=== PATIENT | female | born 1950 | race Caucasian/White ===

== ENCOUNTER 2018-12-27 14:07 | Inpatient (IN) ==
[2018-12-27] MEDS ORDERED: ASPIRIN PO ONE (14:39)
[2018-12-27] MEDS ORDERED: NITROGLYCERIN SL PRN (14:39)
[2018-12-27 14:57] LABS: BASO# 0.05 X1000 (0.0-0.2); BASO% 0.4 % (0.0-0.8); EOS# 0.08 X1000 (0.0-0.7); EOS% 0.6 % (0.0-10.0); HEMATOCRIT 43.4 % (37.0-47.0); HEMOGLOBIN 15.1 g/dL (12.0-16.0); IMM GRAN# 0.04 X1000 (0.0-0.04); IMM GRAN% 0.3 % (0.0-0.5); LYMPH% 26.8 % (20.5-51.1); MCH 31.7 PG (27-31); MCHC 34.8 g/dL (33-37); MCV 91.2 FL (81-99); MONO# 1.41 X1000 (0.11-0.59); MONO% 11.4 % (1.7-9.3); MPV 12.2 FL (7.4-10.4); NEUT# 7.44 X1000 (1.4-6.5); NEUT% 60.5 % (42.2-75.2); PLT 138 X1000 (130-400); RBC 4.76 XMIL (4.2-5.4); RDW 13.7 % (11.5-14.5); WBC 12.32 X1000 (4.8-10.8)
[2018-12-27 15:04] LABS: INR 0.89; PROTIME 12.8 Seconds (11.0-16.0)
[2018-12-27 15:05] LABS: PTT 28.5 Seconds (22.3-41.8)
--- NOTE | 2018-12-27 15:11 | PROVIDER DOCUMENTATION ---
HPI-Cardiac General - General Chief Complaint: Chest Pain Stated Complaint: CP ARM PAIN DR VIEYRA REF Time Seen by Provider: 12/27/18 14:21 Source: patient Allergies/Adverse Reactions: Patient Allergies Allergy/AdvReac Type Severity Reaction Status Date / Time No Known Allergies Allergy Verified 12/27/18 14:46 Home Medications: Home Medication List Medication Instructions Recorded Confirmed Last Taken Type AMLODIPINE/BENAZEpril [Lotrel 5/20 1 each PO DAILY 08/10/12 08/10/12 08/10/12 09:00 History mg] Aspirin 81 mg PO DAILY 08/10/12 08/10/12 08/10/12 09:00 History Citalopram [Celexa] 10 mg PO DAILY 08/10/12 08/10/12 08/10/12 09:00 History Clonazepam [Klonopin] 0.5 mg PO QHS 08/10/12 08/10/12 08/09/12 20:00 History Hydrocodone/APAP 5 mg/325 mg 1 each PO Q6-8H PRN PRN #15 tablet 08/10/12 Unknown Rx [Norc0-5] Ondansetron Odt [Zofran Odt] 4 mg PO Q6-8H PRN PRN #10 tablet 08/10/12 Unknown Rx Orphenadrine [Norflex] 100 mg PO BID #10 tablet 08/10/12 Unknown Rx PRAVAstatin [Pravachol] 40 mg PO QHS 08/10/12 08/10/12 08/09/12 20:00 History - History of Present Illness-Cardiac Nature of Presenting Problem: reports having substernal cp since yesterday after pushing her furnitures. pain is dull and has been constant now. radiated to both arms. took norco and muscle relaxant which felt easy but the pain persists, mild 4/10. no n/v/diaphoresis, weakness, lightheadedness or dizziness during the episode. has weakness all the time. denied fever chills, cough. dysuria, abd pain. 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 currently taking ASA. 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 Review of Systems - Adult - REVIEW OF SYSTEMS - ADULT Constitutional: reports: no symptoms reported Eyes: reports: no symptoms reported Ears, Nose, Mouth & Throat: reports: no symptoms reported Cardiovascular: reports: no symptoms reported Respiratory: reports: no symptoms reported Gastrointestinal: reports: no symptoms reported Genitourinary: reports: no symptoms reported Musculoskeletal: reports: no symptoms reported Integumentary: reports: no symptoms reported Neurological: reports: no symptoms reported Psychiatric: reports: no symptoms reported Endocrine: reports: no symptoms reported Hematologic/Lymphatic: reports: no symptoms reported Allergic/Immunologic: reports: no symptoms reported All Other Systems: Reviewed and Negative Past History - Adult - PAST MEDICAL HISTORY-ADULT Review of Records: reports: Old Records Reviewed, Nursing Assessment Review, Medications Reviewed, Social history reviewed & non-contributory. Major Childhood Illnesses: reports: denies history Cardiovascular: reports: CAD, HTN, hyperlipidemia Respiratory: reports: denies history Gastrointestinal: reports: denies history Obstetrical/Gynecological: reports: denies history Genitourinary: reports: denies history Musculoskeletal: reports: denies history Neurological: reports: denies history Endocrine/Immune: reports: denies history Other Conditions: reports: denies history - PRIOR SURGERIES/PROCEDURES Surgical/Procedure History: reports: cardiac stent (2016) - IMMUNIZATION STATUS Childhood Immunizations: See Nurse Assessment Flu Vaccine: See Nurse Assessment - FAMILY HISTORY Family History: CAD under 55yo - SOCIAL HISTORY Smoking: greater than 1 pack/day Provider spent 3-5 mins advising pt. on dangers of tobacco.: Discussed manners to quit use, and f/u contacts for add'l counseling. Substance Use: none/never Alcohol Use Frequency: occasionally Living Situation: family Physical Exam-General - PHYSICAL EXAM-ADULT Initial Vital Signs Reviewed: Yes - CONSTITUTIONAL General Appearance: appears well, alert, no apparent distress - EYES Eyes: PERRL/EOMI, pink conjunctivae - HEAD, EARS, NOSE, MOUTH & THROAT HENMT: normocephalic/atraumatic, moist mucous membranes, normal ENT inspection - NECK Neck: non-tender, full range of motion, supple - RESPIRATORY Respiratory: chest non-tender, lungs clear, normal breath sounds, no pleuratic chest pain - CARDIOVASCULAR Cardiovascular: normal peripheral pulses, regular rate, rhythm, no edema - GASTROINTESTINAL (ABDOMEN) Abdominal Exam: normal bowel sounds, non tender, soft, no organomegaly - MUSCULOSKELETAL Back Exam: normal inspection, no CVA tenderness, no vertebral tenderness Extremity: normal range of motion, non-tender, normal gait, normal inspection Peripheral Pulses: radial (R): 2+, radial (L): 2+ - SKIN Integumentary: normal color, normal turgor, warm/dry - NEUROLOGIC Neurologic: grossly normal, no motor/sensory deficits - PSYCHIATRIC Psych/Mental Status: normal mood/affect, normal thought content, normal thought process, oriented x 3 - HEART Score HEART Score: History: Moderately Suspicious HEART Score: ECG: Normal HEART Score: Age: > or = 65 Years HEART Score: Risk Factors for Atherosclerotic Disease: > or = 3 Risk Factors or History of Atherosclerotic Disease HEART Score: Troponin: 1-3x Normal Limit Total HEART Score:: 6 Progress - PLAN OF CARE/RESULTS Progress/Plan/Lab Results: Vital Signs - 8 hr 12/27/18 14:39 12/27/18 15:30 12/27/18 15:40 Pulse Rate 64 68 70 Respiratory Rate 16 17 20 Blood Pressure 140/72 O2 Sat by Pulse Oximetry 100 99 98 12/27/18 15:50 12/27/18 16:00 12/27/18 16:10 Pulse Rate 69 69 72 Respiratory Rate 20 24 17 Blood Pressure O2 Sat by Pulse Oximetry 98 97 97 12/27/18 16:20 12/27/18 16:30 12/27/18 16:40 Pulse Rate 75 73 67 Respiratory Rate 19 13 20 Blood Pressure O2 Sat by Pulse Oximetry 98 98 98 12/27/18 16:50 12/27/18 17:00 12/27/18 17:10 Pulse Rate 66 64 64 Respiratory Rate 19 21 17 Blood Pressure O2 Sat by Pulse Oximetry 98 98 99 12/27/18 17:20 12/27/18 17:22 12/27/18 17:30 Pulse Rate 64 63 63 Respiratory Rate 18 19 17 Blood Pressure 146/73 O2 Sat by Pulse Oximetry 98 98 98 12/27/18 17:32 12/27/18 17:40 12/27/18 17:50 Pulse Rate 64 65 61 Respiratory Rate 19 17 19 Blood Pressure 148/79 O2 Sat by Pulse Oximetry 97 99 97 12/27/18 18:00 Pulse Rate 71 Respiratory Rate 16 Blood Pressure O2 Sat by Pulse Oximetry 98 Laboratory Results - last 24 hr 12/27/18 12/27/18 12/27/18 14:47 14:47 14:47 WBC 12.32 H RBC 4.76 Hgb 15.1 Hct 43.4 MCV 91.2 MCH 31.7 H MCHC 34.8 RDW Std Deviation 13.7 Plt Count 138 MPV 12.2 H Immature Gran % (Auto) 0.3 Neut % (Auto) 60.5 Lymph % (Auto) 26.8 [place] % (Auto) 11.4 H Eos % (Auto) 0.6 Baso % (Auto) 0.4 Immature Gran # (Auto) 0.04 Neut # (Auto) 7.44 H Lymph # (Auto) 3.30 [place] # (Auto) 1.41 H Eos # (Auto) 0.08 Baso # (Auto) 0.05 PT INR PTT (Actin FS) Sodium 138 Potassium 3.8 Chloride 102 Carbon Dioxide 27 Anion Gap 9 BUN 7 L Creatinine 0.5 Estimated GFR/1.73 m2 > 60 BUN/Creatinine Ratio 14 Glucose 86 Calculated Osmolality 273 Calcium 9.3 Total Bilirubin 0.77 AST 23 ALT 12 Alkaline Phosphatase 192 H Creatine Kinase 98 Troponin T Dmv-P-Mfcefbjkmrz Pept 846 H Total Protein 7.6 Albumin 4.4 Globulin 3.2 Albumin/Globulin Ratio 1.4 12/27/18 12/27/18 12/27/18 14:47 14:47 17:00 WBC RBC Hgb Hct MCV MCH MCHC RDW Std Deviation Plt Count MPV Immature Gran % (Auto) Neut % (Auto) Lymph % (Auto) [place] % (Auto) Eos % (Auto) Baso % (Auto) Immature Gran # (Auto) Neut # (Auto) Lymph # (Auto) [place] # (Auto) Eos # (Auto) Baso # (Auto) PT 12.8 INR 0.89 PTT (Actin FS) 28.5 Sodium Potassium Chloride Carbon Dioxide Anion Gap BUN Creatinine Estimated GFR/1.73 m2 BUN/Creatinine Ratio Glucose Calculated Osmolality Calcium Total Bilirubin AST ALT Alkaline Phosphatase Creatine Kinase 91 Troponin T 0.095 H Dkg-O-Lgicvikhoeo Pept Total Protein Albumin Globulin Albumin/Globulin Ratio 12/27/18 17:00 WBC RBC Hgb Hct MCV MCH MCHC RDW Std Deviation Plt Count MPV Immature Gran % (Auto) Neut % (Auto) Lymph % (Auto) [place] % (Auto) Eos % (Auto) Baso % (Auto) Immature Gran # (Auto) Neut # (Auto) Lymph # (Auto) [place] # (Auto) Eos # (Auto) Baso # (Auto) PT INR PTT (Actin FS) Sodium Potassium Chloride Carbon Dioxide Anion Gap BUN Creatinine Estimated GFR/1.73 m2 BUN/Creatinine Ratio Glucose Calculated Osmolality Calcium Total Bilirubin AST ALT Alkaline Phosphatase Creatine Kinase Troponin T 0.103 H Rpg-A-Nvemlfqtkzy Pept Total Protein Albumin Globulin Albumin/Globulin Ratio Orders Category Date Time Status Admit - [facility] Routine AdmDCTranf 12/27/18 19:38 Active Apply Mechanical Device [QM] ORDERED Care 12/27/18 19:38 Active Cardiac Monitoring DIRECTED Care 12/27/18 14:39 Active DVT/PE Risk Assess/Protocol [QM] ORDERED Care 12/27/18 19:38 Active Notify MD if DIRECTED Care 12/27/18 19:38 Active Nursing- MD Consult Request ROUTINE Care 12/27/18 19:38 Active Oxygen Therapy- ED Nursing DIRECTED Care 12/27/18 14:39 Active Saline Loc DIRECTED Care 12/27/18 19:38 Active Saline Loc NOW Care 12/27/18 14:39 Active Vital Signs Order Q 4-HR ASSESS Care 12/27/18 19:38 Active Z-Document. for Tele Applied ORDERED Care 12/27/18 19:38 Active Physician/Provider Consults Routine Cons 12/27/18 19:38 Ordered Heart Healthy Diet Diet 12/27/18 17:38 Completed Heart Healthy Diet Diet 12/27/18 19:38 Active CHEST-2 VIEWS [RAD] Stat Exams 12/27/18 14:39 Completed BASIC METABOLIC PANEL [CHEM] Routine Lab 12/28/18 06:00 Ordered CBC WITH ELECTRONIC DIFF [HEME] Stat Lab 12/27/18 14:47 Completed CK PROFILE [SP CHEM] Q8H Lab 12/27/18 20:05 Completed CK PROFILE [SP CHEM] Q8H Lab 12/28/18 03:38 Ordered CK PROFILE [SP CHEM] Q8H Lab 12/28/18 11:38 Ordered CK PROFILE [SP CHEM] Stat Lab 12/27/18 14:47 Completed CK PROFILE [SP CHEM] Stat Lab 12/27/18 17:00 Completed COMPREHENSIVE METABOLIC PANEL [CHEM] Stat Lab 12/27/18 14:47 Completed LIPID PROFILE W/CALC LDL [LIPIDS] Routine Lab 12/28/18 06:00 Ordered MAGNESIUM [CHEM] Routine Lab 12/28/18 06:00 Ordered PRO B-NATRIURETIC PEPTIDE Stat Lab 12/27/18 14:47 Completed PROTIME WITH INR [COAG] Stat Lab 12/27/18 14:47 Completed PTT [COAG] Stat Lab 12/27/18 14:47 Completed TROPONIN T Q8H Lab 12/27/18 20:05 Completed TROPONIN T Q8H Lab 12/28/18 03:38 Ordered TROPONIN T Q8H Lab 12/28/18 11:38 Ordered TROPONIN T Stat Lab 12/27/18 14:47 Completed TROPONIN T Stat Lab 12/27/18 17:00 Completed Acetaminophen [Tylenol] Med 12/27/18 19:38 Active 650 mg PO Q6H PRN PRN Aspirin Med 12/27/18 19:38 Active 325 mg PO DAILY Aspirin Med 12/27/18 14:39 Discontinued 325 mg PO NOW ONE Carvedilol [Coreg] Med 12/27/18 15:58 Discontinued 3.125 mg PO NOW ONE Citalopram [Celexa] Med 12/28/18 09:00 Active 10 mg PO DAILY Clonazepam [Klonopin] Med 12/27/18 21:00 Active 0.5 mg PO QHS Enoxaparin 1 mg/kg [Lovenox 1 mg/kg] Med 12/27/18 16:25 Discontinued 1 each SUBQ NOW ONE Enoxaparin [Lovenox] Med 12/27/18 16:45 Discontinued 50 mg SUBQ NOW ONE Heparin Med 12/27/18 15:50 Discontinued See Dose Instructions IV NOW ONE Heparin Med 12/27/18 15:50 Discontinued See Dose Instructions IV PRN PRN Heparin 25,000 Units/D5w Med 12/27/18 16:00 Discontinued 25,000 unit in 250 ml IV 12 unit/kg/hr Hydrocodone/APAP 5 mg/325 mg [[place]-5] Med 12/27/18 19:38 Active 1 each PO Q6-8H PRN PRN Metoprolol [Lopressor] Med 12/27/18 21:00 Active 12.5 mg PO BID Metoprolol [Lopressor] Med 12/27/18 16:00 Discontinued 12.5 mg PO NOW ONE Morphine Med 12/27/18 15:57 Discontinued 2 mg IV NOW ONE Nitroglycerin Sl [Nitroglycerin] Med 12/27/18 14:39 Active 0.4 mg SL Q5M PRN PRN Omeprazole [Prilosec] Med 12/28/18 07:00 Active 20 mg PO DAILY@0700 Ondansetron [Zofran] Med 12/27/18 19:38 Active 4 mg IV Q4H PRN PRN Orphenadrine [Norflex] Med 12/27/18 21:00 Active 100 mg PO BID PRAVAstatin [Pravachol] Med 12/27/18 21:00 Active 40 mg PO QHS CP/SOB/Palp >45 yrs of Age Stat Oth 12/27/18 14:39 Ordered Oxygen Device Routine Oth 12/27/18 19:38 Active Telemetry [OM.EQ] Routine Oth 12/27/18 19:38 Active EKG [EKG] Routine Ther 12/27/18 19:38 Ordered EKG [EKG] Stat Ther 12/27/18 14:39 Draft EKG [EKG] Stat Ther 12/27/18 15:45 Ordered Transfer/Admit Order [TRANSFER] Routine Transfer 12/27/18 17:23 Completed Result Diagrams: 12/27/18 14:47 12/27/18 14:47 - EKG 1 EKG Read and Signed by:: Clyde Jeffery EKG Interpretation (*Must complete 3 of following elements*): Normal [place]: normal QRS: normal NE Interval: normal ST Wave: normal - CONSULTS/PCP/HOSPITALIST Notification #1 *Consult/PCP/Hospitalist*: Florina HERNANDES Time Discussed: 15:53 (NSTEMI) 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 Perry Time Discussed: 16:26 Consult Disposition: Admit Departure - Departure Date of Disposition Decision: 12/27/18 Time of Disposition Decision: 16:26 DIAGNOSIS: Tobacco abuse disorder, NSTEMI (non-ST elevated myocardial infarction) Disposition: ADMITTED INPATIENT 09 Certified Medical Emergency: Emergent Condition: Stable - Critical Care Note This patient required my direct & personal management of CC.: Yes Total Time (mins): 36 Critical Care Statement: This patient required my direct personal management to treat or rule out processes, the absence of which, could potentiallly result in sudden, clinically significant life or limb threatening deterioration. Attestation - Physician/ YOSELYN Attestation The physician spent face to face time with patient:: Yes Advanced Practice Provider documentation review:: Supervising physician onsite and consulted in the evaluation and care of this patient. The physician did have a face to face encounter with the patient.
--- NOTE | 2018-12-27 15:22 | Diag Imaging Result Doc PS360 ---
EXAM: CHEST-2 VIEWS 12/27/2018 HISTORY: cp TECHNIQUE: PA and lateral chest COMMENT: There is no evidence of acute cardiac or pulmonary disease. Compared to 07/18/2018 there has been no significant change in the appearance of the chest. IMPRESSION: No evidence of acute disease. Electronically signed by Osorio Avelar 12/27/2018 3:20 PM
[2018-12-27 15:23] LABS: AGAP 9; ALB/GLOB RATIO 1.4; ALBUMIN 4.4 g/dL (3.5-5.0); ALKALINE PHOSPHATASE 192 U/L (32-104); BUN 7 mg/dL (8-22); CALCIUM 9.3 mg/dL (8.8-10.2); CHLORIDE 102 mmol/L (98-107); CK PROFILE 98 U/L (24-173); COSMO 273; CREATININE 0.5 mg/dL (0.5-0.9); ESTIMATED GFR > 60; GLUCOSE 86 mg/dL (70-104); GOT 23 U/L (10-30); GPT 12 U/L (10-36); POTASSIUM 3.8 mmol/L (3.5-5.1); SODIUM 138 mmol/L (136-145); TCO2 27 mmol/L (25-35); TOTAL BILIRUBIN 0.77 mg/dL (0.20-1.00); TOTAL PROTEIN 7.6 g/dL (6.3-8.3)
--- NOTE | 2018-12-27 15:23 | EKG Report ---
Test Performed on : 12/27/2018 2:09:29 PM Test Reason : cp Blood Pressure : / mmHG Vent. Rate : 070 BPM Atrial Rate : 070 BPM P-R Int : 170 ms QRS Dur : 082 ms QT Int : 398 ms P-R-T Axes : 067 022 063 degrees QTc Int : 429 ms Normal sinus rhythm. Normal ECG When compared with ECG of 06-JAN-2018 00:25, ST elevation now present in Inferior leads Unconfirmed Result
[2018-12-27] MEDS ORDERED: HEPARIN IV ONE (15:50)
[2018-12-27] MEDS ORDERED: HEPARIN IV PRN (15:50)
[2018-12-27] MEDS ORDERED: MORPHINE IV ONE (15:57)
[2018-12-27] MEDS ORDERED: COREG PO ONE (15:58)
[2018-12-27] MEDS ORDERED: LOPRESSOR PO ONE (16:00)
[2018-12-27] MEDS ORDERED: HEPARIN 25,000 UNITS/D5W 25,000 UNIT/250 ML IV.SOLN IV SCH (16:00)
[2018-12-27] MEDS ORDERED: LOVENOX 1 MG/KG SUBQ ONE (16:25)
[2018-12-27] MEDS ORDERED: LOVENOX SUBQ ONE (16:45)
--- NOTE | 2018-12-27 17:49 | HISTORY AND PHYSICAL ---
HISTORY OF PRESENT ILLNESS: Ms. Belle is a 68-year-old who started having chest pain. Today is ; she started having it on Monday, I think. She had been rearranging some furniture and noticed some pain. She says it is not really a pressure, it is not really sharp. Hard to describe but seems to be up high in the upper sternum and radiates to both arms and shoulders. No nausea, no palpitations, no dyspnea or shortness of breath, no fever or chills, no pleuritic component. Does not feel like she has any chest wall discomfort. She has not had any increased esophageal reflux or acid reflux type symptoms. PAST MEDICAL HISTORY: 1. Coronary artery disease. Three years ago, I think she had 2 stents, and by her report, she did not have a myocardial infarction. 2. Hypertension. 3. Hyperlipidemia. PAST SURGICAL HISTORY: Appendectomy, hysterectomy, elbow surgery. SOCIAL HISTORY: Smokes still about a pack a day. Very rare use of alcohol. No illicit drugs. ALLERGIES: No known drug allergies. FAMILY HISTORY: Both of her daughters I think have coronary artery disease. One of her siblings, I think they found a tumor in the heart; I do not know if they meant a myxoma, but does have other family members who it sounds like they have had coronary artery disease. REVIEW OF SYSTEMS: In general, no weight gain or loss, no fever or chills. HEENT: Unremarkable. No change in visual or hearing acuity. No neck pain. No cervical adenopathy. No upper respiratory congestion. Respiratory: No increased work of breathing or dyspnea. Cardiovascular: As mentioned above, does not complain of pressure related to exertion. No jaw pain. No palpitations. Gastrointestinal and Genitourinary: No gross hematuria or hematochezia. Musculoskeletal/Neurologic: No focal complaints. Endocrinologic/hematologic: No significant history. PHYSICAL EXAMINATION: Temperature 99 degrees, pulse 64, respirations 21, blood pressure 140/72. Pupils are equal and round. Weight 110 pounds. Height 5 feet 2 inches. Oral and nasal mucosa unremarkable. Conjunctiva red. Sclerae are clear. CVP less than 6 cm from the right atrium. No cervical adenopathy. Carotid, radial, femoral pulses 2+ and symmetrical. She does have a left carotid bruit. Lungs are clear in all lung [place] anterior and posterior. CARDIOVASCULAR: Regular rate without murmur or S3. PMI nondisplaced. ABDOMEN: Soft, nondistended, nontender. Extremities are without clubbing, cyanosis, or edema. DIAGNOSTIC STUDIES: EKG shows normal sinus rhythm, no ST-segment abnormalities. No ectopy appreciated. White count 12,320, hematocrit is 43, platelet count 138,000. Sodium 138, potassium 3.8, chloride 102, BUN 7, creatinine 0.5, AST 23, ALT 12, alkaline phosphatase 192, albumin 4.4. PTT is 12.8, PTT is 28. Chest x-ray: No evidence of acute disease. Lung [place] appear clear. Cardiomediastinal silhouette unremarkable. Troponin was 0.091, CK was 98. ASSESSMENT AND PLAN: 1. Atypical chest pain in a patient with known coronary artery disease and elevation in troponin. EKG completely unremarkable. We will check serial cardiac enzymes and EKG. Ask Cardiology to follow along. With her history, I think we are going to have to make sure this is unstable angina. We will put her on aspirin. She is on amlodipine and benazepril, she takes 1 a day, aspirin 81 mg a day and her rhythm looks pretty good, so I am not going to put her on a beta len at this point. 2. History of anxiety. She takes Klonopin. 3. History of hypertension. 4. Hyperlipidemia. 5. She told me that her left carotid had some blockage to it. 6. She has some, I think, chronic pain from arthritic type pain for which she was taking Spelter 5's as needed. cc: Kraig Ferrari MD MTDD
[2018-12-27] MEDS: ASPIRIN PO SCH (19:38)
[2018-12-27] MEDS ORDERED: ZOFRAN IV PRN (19:38)
[2018-12-27] MEDS ORDERED: NORCO-5 PO PRN (19:38)
[2018-12-27] MEDS ORDERED: TYLENOL PO PRN (19:38)
[2018-12-27] MEDS ORDERED: KLONOPIN PO SCH (21:00)
[2018-12-27] MEDS ORDERED: PRAVACHOL PO SCH (21:00)
[2018-12-27] MEDS: LOPRESSOR PO SCH (21:48)
[2018-12-27] MEDS: NORFLEX PO SCH (21:48)
[2018-12-28] MEDS: PRILOSEC PO SCH ×2 (06:12→08:40)
--- NOTE | 2018-12-28 07:16 | EKG Report ---
Test Performed on : 12/27/2018 8:24:15 PM Test Reason : chest pain Blood Pressure : / mmHG Vent. Rate : 061 BPM Atrial Rate : 061 BPM P-R Int : 182 ms QRS Dur : 090 ms QT Int : 416 ms P-R-T Axes : 069 039 069 degrees QTc Int : 418 ms Normal sinus rhythm. Normal ECG When compared with ECG of 27-DEC-2018 14:09, (Unconfirmed) No significant change was found Confirmed by Dany POWERS, Aldair ([id number]) on 12/28/2018 8:42:24 AM
--- NOTE | 2018-12-28 08:11 | EKG Report ---
Test Performed on : 12/28/2018 07:52:42 AM Test Reason : chest pain Blood Pressure : / mmHG Vent. Rate : 064 BPM Atrial Rate : 064 BPM P-R Int : 170 ms QRS Dur : 086 ms QT Int : 410 ms P-R-T Axes : 072 045 069 degrees QTc Int : 422 ms Normal sinus rhythm. Normal ECG When compared with ECG of 27-DEC-2018 20:24, (Unconfirmed) No significant change was found Confirmed by Dany POWERS, Aldair ([id number]) on 12/28/2018 8:44:55 AM
[2018-12-28] MEDS: LOPRESSOR PO SCH (08:40)
[2018-12-28] MEDS: ASPIRIN PO SCH (08:40)
--- NOTE | 2018-12-28 08:59 | DISCHARGE SUMMARY ---
ADMISSION DATE: 12/27/2018 DISCHARGE DATE: 12/28/2018 HOSPITAL COURSE: This is a 68-year-old patient of Dr. Jaquan Sommer, and she presented with chest pain yesterday on 12/27/2018. Hope to discharge her, send her to [place] as she has elevation in her enzymes, appears to have a non ST-segment ischemia. She started having pain on Monday, admitted her on . The pain was high sternal pain, was not really pressure, was not really sharp. She said it was hard to explain. It seemed to radiate into both arms. She has known coronary artery disease, and I think 3 years ago had 2 stents placed, so multivessel disease. At that time she did not have a myocardial infarction. EKG was completely normal. No sign of any abnormality or ST-segment deviation. She also has a history of hypertension, hyperlipidemia. Strong family history; both her daughters had coronary artery disease requiring intervention in their 30s. She is comfortable. PHYSICAL EXAMINATION: Vital Signs: On exam this morning, remains afebrile, temperature 97.5 degrees, pulse 70, respirations 20, blood pressure 167/73. Eyes: Pupils are equal and round. Lungs: Clear anterolateral. Cardiovascular exam: Regular rhythm and rate without murmur or S3. Abdomen: Soft. Extremities: No pedal edema. LABS: Monitor shows sinus rhythm. Reviewed lab from admission: White count 12,320, hematocrit 43, platelet count 138,000. Sodium 138, potassium 3.8, chloride 102. BUN 7, creatinine 0.5. Her troponin was 0.103 and then 0.102 on presentation. The first 2 sets of enzymes revealed CK were 91 and 68. PLAN: So the plan is to send her to [place] for left heart catheterization and then determine appropriate intervention if a candidate. DISCHARGE MEDICATIONS: We will keep her on what she is on right now. She is on aspirin 325 mg a day, Celexa 10 mg a day, Klonopin 0.5 mg at bedtime. She has [place]ia 5s that she can take q. 6-8 hours p.r.n. pain, nitroglycerin 0.4 mg sublingual p.r.n., Prilosec 20 mg a day, Norflex 100 mg b.i.d., pravastatin 40 mg at bedtime. cc: Kraig Ferrari MD
[2018-12-28] MEDS ORDERED: CELEXA PO SCH (09:00)
[2018-12-28] MEDS ORDERED: ASPIRIN PO SCH (09:00)
[2018-12-28] MEDS: NORFLEX PO SCH (09:12)
[2018-12-28 09:33] LABS: AGAP 7; BUN 8 mg/dL (8-22); CALCIUM 9.1 mg/dL (8.8-10.2); CHLORIDE 103 mmol/L (98-107); CHOLESTEROL 165 mg/dL (0-200); COSMO 275; CREATININE 0.5 mg/dL (0.5-0.9); ESTIMATED GFR > 60; GLUCOSE 120 mg/dL (70-104); HDL 45 mg/dL (45-65); LDL 94 mg/dL; MAGNESIUM 2.1 mg/dL (1.5-2.7); POTASSIUM 3.9 mmol/L (3.5-5.1); SODIUM 138 mmol/L (136-145); TCO2 28 mmol/L (25-35); TRIGLYCERIDES 131 mg/dL (35-135); VLDL 26 mg/dL
--- NOTE | 2018-12-28 10:28 | CARDIOLOGY CONSULTATION ---
DATE: 12/28/2018 REQUESTING PHYSICIAN: Dr. Ferrari for the hospitalist service. PRIMARY PHYSICIAN: Dr. Marin. PRIMARY PUBLIC HEALTH MICROBIOLOGIST: Dr. Retana. REASON FOR CONSULTATION: Chest pain. Possible myocardial infarction. HISTORY OF PRESENT ILLNESS: This is a 68-year-old female, who presented to Dr. Marin's office yesterday, 12/27/2018, complaining of 3 days of chest pain. Pain started on 12/25/2018. She said that she was pushing a couch at home. She got really tired and exhausted and then started having pain across the top of the chest. This went on in increasing severity throughout the course of the ensuing 24 to 36 hours. Because the pain did not subside, she decided to seek evaluation. She went to see Dr. Marin, who immediately recommended admission to the hospital. She has had 2 EKGs that are really unremarkable. They have done 4 troponin levels on her, one at 22:47 p.m. yesterday that was 0.095, that is elevated. Next one at 5 p.m. yesterday, 0.103. The next one at 8 p.m. yesterday, 0.05. The last one at 3 a.m. this morning, 0.102. The patient says that the pain is better. She has been given aspirin. She has been given 1 shot of enoxaparin and beta blockers. Her EKG this morning just done moments ago at 7:52 shows sinus rhythm, no acute ST changes. PAST MEDICAL HISTORY: The patient's past history is significant for severe coronary heart disease. Back in July 2016, Dr. Damian performed a heart catheterization and found a severe stenosis of a small caliber dominant right coronary artery. He put a stent. She had a 50% ramus and she also had a proximal LAD stenosis that appeared to be nonsignificant. The patient has been treated medically by Dr. Retana. She was seen just recently on 11/29/2018 at his office. She appeared to be stable. She does have carotid disease, hyperlipidemia and hypertension. PAST SURGICAL HISTORY: The patient's surgical history is positive for a recent back surgery in [place] under Dr. Alon Merritt. That was done in September of this year. She has had carpal tunnel surgery, hysterectomy tubal ligation. SOCIAL HISTORY: She is . Her is a ice cream van vendor and he is always busy working. She has 2 children. The patient is a smoker of a pack of cigarettes a day or more than that. She is not working at this time. FAMILY HISTORY: Multiple members with coronary heart disease, mother, brother, sister and daughter. HOME MEDICATIONS: At the time of this presentation included 1. Amlodipine/benazepril 5/20 daily. 2. Aspirin 81 daily. 3. Celexa 10 mg daily. 4. Klonopin 0.5 at bedtime. 5. Hydrocodone every 6 hours. 6. Ondansetron 4 mg every 6 to 8 hours. 7. Norflex 100 twice a day. 8. Pravastatin 40 at bedtime. ALLERGIES: She has no allergies. REVIEW OF SYSTEMS: She has not had chest pains in a while. She has some chronic dyspnea. She has some pain in the legs intermittently, possibly claudication. No other significant positives. PHYSICAL EXAMINATION: Vital signs: Blood pressure is 167/73, temperature 97.5 degrees, pulse 73, respirations 20. General: The patient is awake, alert, oriented, in no distress. HEENT: Unremarkable. Chest: Diminished breath sounds diffusely without any rales. It is hyper-resonant to percussion. Heart: Heart sounds regular and rhythmic. No gallop or murmur. Abdomen: Nontender, soft. No masses. No hepatomegaly. Extremities: Showed better pulses on the left leg than on the right. LABORATORY DATA: Her blood work today shows hemoglobin is 15.1, hematocrit 43.4. BUN 7, creatinine 0.5, sodium 138, potassium 3.8. Albumin is 4.4. ProBNP is 846 pg/ml, normal is up to 353 pg/ml. Chest x-ray was done in the ER and it shows no evidence of acute disease. IMPRESSION: 1. The patient presenting with sudden onset of chest pain with elevation of troponin level, very consistent with non ST elevation myocardial infarction. 2. The patient with history of severe coronary heart disease. Previous stent to right coronary artery in July 2016. 3. 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 4. History of chronic back pain. 5. Hypertension. 6. Hyperlipidemia. 7. Ongoing tobacco abuse. RECOMMENDATION: At this time, the patient has been given aspirin, enoxaparin, beta blockers. I believe the patient must proceed with a diagnostic heart catheterization. The benefits, risks, and complications were discussed. Because of the logistics of the case, I believe we need to transfer her to [place]. I explained this to her. She is in full agreement. We are contacting the transfer center. cc: Ross Coleman MD MTDD
[2018-12-28 12:06] VITALS: BP 134/65
[2018-12-28] MEDS ORDERED: LOVENOX SUBQ SCH (12:15)
[2018-12-28] MEDS ORDERED: LOPRESSOR PO SCH (15:00)
== END 2018-12-28 14:45 | disposition short-term general hospital (02) | DRG 282 ==
LOC: ED 14:07 → EDIPHOLD 19:12 → 3S 23:34
PROVIDERS: ATTEND Emergency Medicine
CPT/HCPCS: 71020; 71046; 80048; 80053; 80061; 82550; 83735; 83880; 84484; 85025; 85610; 85730; 93005; 93010; 94761; 96372; 96374; 99285; 99291; A9270; J1644; J1650; J2270

== ENCOUNTER 2019-08-27 14:27 | Inpatient (IN) ==
--- NOTE | 2019-08-27 15:33 | PROVIDER DOCUMENTATION ---
HPI-Screening - General Chief Complaint: Cough Stated Complaint: N/V/D Time Seen by Provider: 08/27/19 15:28 Source: patient Allergies/Adverse Reactions: Allergies Allergy/AdvReac Type Severity Reaction Status Date / Time No Known Allergies Allergy Verified 08/27/19 16:27 Home Medications: Home Medication List Medication Instructions Recorded Confirmed Last Taken Type Aspirin EC 81 mg PO DAILY 08/28/19 08/28/19 08/26/19 09:00 History 81mg Atorvastatin Calcium [Lipitor] 80 mg PO HS 08/28/19 08/28/19 08/26/19 21:00 History 80mg Citalopram [Celexa] 30 mg PO DAILY 08/28/19 08/28/19 08/27/19 09:00 History 20mg Clonazepam 0.5 mg PO 08/28/19 Unknown History Gabapentin 300 mg PO TID 08/28/19 08/28/19 08/26/19 21:00 History 300mg Irbesartan [Avapro] 150 mg PO DAILY 08/28/19 08/28/19 Unknown History Metoprolol [Lopressor] 50 mg PO DAILY 08/28/19 08/28/19 08/26/19 09:00 History Omeprazole 40 mg PO DAILY 08/28/19 08/28/19 08/26/19 07:00 History 40mg Ticagrelor [Brilinta] 90 mg PO BID 08/28/19 08/28/19 08/26/19 21:00 History 90mg Acetaminophen [Tylenol] 650 mg PO Q6H PRN PRN tab 08/29/19 Unknown Rx Oseltamivir [Tamiflu] 75 mg PO BID #7 cap 08/29/19 Unknown Rx Patient arrived via EMS?: No (POV) HPI: pt. cough x 3 days and N/V/D today after taking pain medication, pt states she has had increased Dyspnea, and JACOME x a few days with intermittent fever, pt. weak and dizzy/ w vision changes onset today @ approx 800 am, dizziness and vision changes still present, with woozy feelings. pt also c/o bilat rib pain x a few days. pt has Hx of CAD with stents, HTN, HLD. Physical Exam-Screening - CONSTITUTIONAL General Appearance: mild distress Screening Depart - Departure Date of Disposition Decision: 08/27/19 Time of Disposition Decision: 18:33 DIAGNOSIS: PANCHITO (acute kidney injury) AMS (altered mental status) Qualifiers: Altered mental status type: transient alteration of awareness Qualified Code(s): R40.4 - Transient alteration of awareness Disposition: ADMITTED INPATIENT 09 Certified Medical Emergency: Emergent Condition: Stable Attestation - Physician/ YOSELYN Attestation Patient care was provided by Advanced Practice Provider:: Yes Advanced Practice Provider:: Muna Posey Advanced Practice Provider documentation review:: The Mid-level provider documentation, treatment plan and medical decision making was reviewed by the physician who agrees with all treatment and medical decision making by the MLP. The physician spent face to face time with patient:: No Advanced Practice Provider documentation review:: Supervising physician onsite and consulted in the evaluation and care of this patient. The physician did not have a face to face encounter with the patient.
--- NOTE | 2019-08-27 16:36 | Diag Imaging Result Doc PS360 ---
CHEST-2 VIEWS - 08/27/2019 INDICATION: sob COMPARISON: 07/19/2019 FINDINGS: The lungs are normally expanded and clear. Heart size and mediastinal contours are normal. No pneumothorax or pleural effusion. IMPRESSION: Negative exam. Electronically signed by Dion Hope 08/27/2019 4:34 PM
--- NOTE | 2019-08-27 16:39 | Diag Imaging Result Doc PS360 ---
CT HEAD W/O CONTRAST - 08/27/2019 INDICATION: dizziness/vision changes COMPARISON: 01/05/2018 FINDINGS: The ventricles and sulci are normal in size and contour. No intracranial mass or hemorrhage. There is mild periventricular white matter chronic microvascular ischemia. The skull is intact. The sinuses, mastoids, and middle ears are clear. IMPRESSION: No acute disease or change from prior. This exam was performed using automated exposure control, adjustment of mA or kV according to patient size, and/or use of iterative reconstruction technique Electronically signed by Dion Hope 08/27/2019 4:36 PM
[2019-08-27 17:06] LABS: URINE SOURCE CLEAN CATCH
[2019-08-27 17:09] LABS: BASO# 0.04 X1000 (0.0-0.2); BASO% 0.4 % (0.0-0.8); EOS# 0.08 X1000 (0.0-0.7); EOS% 0.9 % (0.0-10.0); HEMATOCRIT 46.1 % (37.0-47.0); HEMOGLOBIN 14.7 g/dL (12.0-16.0); IMM GRAN# 0.03 X1000 (0.0-0.04); IMM GRAN% 0.3 % (0.0-0.5); LYMPH# 1.55 X1000 (1.2-3.4); LYMPH% 17.3 % (20.5-51.1); MCH 31.2 PG (27-31); MCHC 31.9 g/dL (33-37); MCV 97.9 FL (81-99); MONO# 1.01 X1000 (0.11-0.59); MONO% 11.2 % (1.7-9.3); NEUT# 6.27 X1000 (1.4-6.5); NEUT% 69.9 % (42.2-75.2); PLT 140 X1000 (130-400); RBC 4.71 XMIL (4.2-5.4); RDW 13.9 % (11.5-14.5); WBC 8.98 X1000 (4.8-10.8)
[2019-08-27 17:11] LABS: BILIRUBIN URINE SMALL (NEGATIVE); BLOOD URINE NEGATIVE (NEGATIVE); COLOR YELLOW; GLUCOSE URINE NEGATIVE (NEGATIVE); KETONE URINE TRACE mg/dL (NEGATIVE); LEUKOCYTES URINE NEGATIVE (NEGATIVE); NITRITE URINE NEGATIVE (NEGATIVE); PROTEIN URINE 50 mg/dL (NEGATIVE); SP GRAVITY URINE 1.028; TURBIDITY URINE HAZY (CLEAR); UROBILINOGEN URINE 2 mg/dL (NORMAL)
[2019-08-27 17:12] LABS: UR EPITHELIAL CELLS >10 /HPF (<10); URINE BACTERIA 1+ /HPF; URINE RBC <10 /HPF (<10); URINE WBC <10 /HPF (<10)
[2019-08-27 17:20] LABS: INR 0.91; PROTIME 12.3 Seconds (11.0-16.0)
[2019-08-27 17:21] LABS: PTT 28.8 Seconds (22.3-41.8)
[2019-08-27 17:30] LABS: ALB/GLOB RATIO 1.3; ALBUMIN 4.1 g/dL (3.5-5.0); CREATININE 2.3 mg/dL (0.5-0.9); TOTAL BILIRUBIN 0.26 mg/dL (0.20-1.00); TOTAL PROTEIN 7.3 g/dL (6.3-8.3)
[2019-08-27 17:40] LABS: UR AMPHETAMINES QUAL NONE DETECTED (NONE DETECT); UR BARBITUATES QUAL NONE DETECTED (NONE DETECT); UR BENZODIAZEPIN QUAL NONE DETECTED (NONE DETECT); UR CANNABINOIDS QUAL NONE DETECTED (NONE DETECT); UR COCAINE QUAL NONE DETECTED (NONE DETECT); UR METHADONE QUAL NONE DETECTED (NONE DETECT); UR OPIATES QUAL PRESUMPTIVE POSITIVE (NONE DETECT); UR OXYCODONE QUAL NONE DETECTED (NONE DETECT); UR PCP QUAL NONE DETECTED (NONE DETECT)
--- NOTE | 2019-08-27 17:40 | EKG Report ---
Test Performed on : 08/27/2019 5:09:05 PM Test Reason : sob Blood Pressure : / mmHG Vent. Rate : 055 BPM Atrial Rate : 055 BPM P-R Int : 176 ms QRS Dur : 080 ms QT Int : 412 ms P-R-T Axes : 071 031 046 degrees QTc Int : 394 ms Sinus bradycardia. Nonspecific T wave abnormality Abnormal ECG When compared with ECG of 28-DEC-2018 07:52, Nonspecific T wave abnormality now evident in Inferior leads Nonspecific T wave abnormality now evident in Anterolateral leads Unconfirmed Result
[2019-08-27] MEDS ORDERED: NS 1,000 ML IV ONE ×2 (18:10→19:28)
--- NOTE | 2019-08-27 18:40 | PROVIDER DOCUMENTATION ---
This chart was entered by Deneen Wilkes Scribe, acting as scribe for Heide Alvarez MD. HPI-General Adult - General Chief Complaint: Cough Stated Complaint: N/V/D Time Seen by Provider: 08/27/19 15:28 Source: patient, family () Allergies/Adverse Reactions: Patient Allergies Allergy/AdvReac Type Severity Reaction Status Date / Time No Known Allergies Allergy Verified 08/27/19 16:27 Home Medications: Home Medication List Medication Instructions Recorded Confirmed Last Taken Type Unobtainable [Home Meds 08/27/19 08/27/19 Unknown History Unobtainable] - History of Present Illness -Gen Adult Nature of Presenting Problems: 68yof presents to ED cc cough for 5 days, cold sweats last night & today, at 11am brief unresponsiveness, later had staggered gait per including blurry vision, fatigue, hard to find words and forgetfulness according to . Pt has hx of HTN, HLD and CAD. Pt is A&Ox3 and in no acute distress upon exam. She admits to taking a relative norco today or her chronic low back pain but that was after above sxs started Location of Pain/Injury: reports: generalized Pain Radiation: reports: no radiation Severity: reports: mild, moderate Onset/Duration: reports: 5 days ago Timing: reports: still present Context/Activities at Onset: reports: light activity Modifying Factors: improves with: nothing Associated Symptoms: reports: cough, fatigue, fever/chills Similar Symptoms Previously?: No Recently seen or treated by another doctor?: No Review of Systems - Adult - REVIEW OF SYSTEMS - ADULT Constitutional: reports: see HPI, chills, fatique, night sweats. denies: fever Eyes: reports: see HPI, blurred vision Ears, Nose, Mouth & Throat: reports: no symptoms reported Cardiovascular: reports: no symptoms reported Respiratory: reports: see HPI, cough. denies: shortness of breath Gastrointestinal: reports: no symptoms reported Genitourinary: reports: no symptoms reported Musculoskeletal: reports: no symptoms reported Integumentary: reports: no symptoms reported Neurological: reports: see HPI, loss of balance, other (confusion, hard to find words, forgetfulness) Psychiatric: reports: no symptoms reported Endocrine: reports: no symptoms reported Hematologic/Lymphatic: reports: no symptoms reported Allergic/Immunologic: reports: no symptoms reported All Other Systems: Reviewed and Negative Past History - Adult - PAST MEDICAL HISTORY-ADULT Review of Records: reports: Old Records Reviewed, Nursing Assessment Review, Medications Reviewed, Social history reviewed & non-contributory. Major Childhood Illnesses: reports: denies history Cardiovascular: reports: CAD, HTN, hyperlipidemia Respiratory: reports: denies history Gastrointestinal: reports: denies history Obstetrical/Gynecological: reports: denies history Genitourinary: reports: denies history Musculoskeletal: reports: denies history Neurological: reports: denies history Endocrine/Immune: reports: denies history Other Conditions: reports: denies history - PRIOR SURGERIES/PROCEDURES Surgical/Procedure History: reports: cardiac stent (2016) - IMMUNIZATION STATUS Childhood Immunizations: See Nurse Assessment Flu Vaccine: See Nurse Assessment - FAMILY HISTORY Family History: CAD under 55yo - SOCIAL HISTORY Smoking: cigarettes, greater than 1 pack/day Provider spent 3-5 mins advising pt. on dangers of tobacco.: Discussed manners to quit use, and f/u contacts for add'l counseling. Substance Use: alcohol Physical Exam-General - PHYSICAL EXAM-ADULT Initial Vital Signs Reviewed: Yes - CONSTITUTIONAL General Appearance: appears well, alert, no apparent distress. negative: a nxious, combative - EYES Eyes: PERRL/EOMI, pink conjunctivae. negative: photophobia - HEAD, EARS, NOSE, MOUTH & THROAT HENMT: normocephalic/atraumatic, moist mucous membranes. negative: angioedema - NECK Neck: normal inspection - RESPIRATORY Respiratory: chest non-tender, lungs clear, normal breath sounds. negative: rhonchi, wheezing - CARDIOVASCULAR Cardiovascular: normal peripheral pulses, regular rate, rhythm, no edema, systolic murmur. negative: bradycardia, tachycardia - GASTROINTESTINAL (ABDOMEN) Abdominal Exam: normal bowel sounds, non tender, soft. negative: rigid, rebound - MUSCULOSKELETAL Back Exam: normal inspection, no CVA tenderness, no vertebral tenderness Extremity: normal range of motion, normal gait, normal inspection, no calf tenderness, normal capillary refill. negative: deformity - SKIN Integumentary: normal color. negative: diaphoresis, jaundice - NEUROLOGIC Neurologic: director compensation II-XII nml as tested, grossly normal - PSYCHIATRIC Psych/Mental Status: normal mood/affect, oriented x 3. negative: anxious, disheveled Progress - PLAN OF CARE/RESULTS Progress/Plan/Lab Results: Vital Signs - 8 hr 08/27/19 14:40 08/27/19 16:42 Temperature 97.5 F L 97.5 F L Pulse Rate 63 55 L Respiratory Rate 16 16 Blood Pressure 89/59 105/64 O2 Sat by Pulse Oximetry 97 98 Orders Category Date Time Status Cardiac Monitoring DIRECTED Care 08/27/19 15:58 Active CHEST-2 VIEWS [RAD] Stat Exams 08/27/19 15:[address] HEAD W/O CONTRAST [CT] Stat Exams 08/27/19 15:39 Completed CBC WITH ELECTRONIC DIFF [HEME] Stat Lab 08/27/19 15:33 Uncollected COMPREHENSIVE METABOLIC PANEL [CHEM] Stat Lab 08/27/19 15:33 Uncollected PROTIME WITH INR [COAG] Stat Lab 08/27/19 15:58 Uncollected PTT [COAG] Stat Lab 08/27/19 15:58 Uncollected TROPONIN T Stat Lab 08/27/19 15:33 Uncollected URINALYSIS W/POSS RFLX CULT [URINALYSIS] Stat Lab 08/27/19 15:58 Uncollected URINE DRUG SCREEN Stat Lab 08/27/19 15:58 Uncollected EKG [EKG] Stat Ther 08/27/19 15:33 Ordered Result Diagrams: 08/27/19 16:59 08/27/19 16:59 - REASSESSMENT Reassessment #1 Time Reassessed: 18:25 Status: improving (awake, AAO x3, conversation i improved compaired with prior exams. Disussed abn kidney findings, dehydration and neg CT head. Discussed admission at least 23hr observation. Patient was initially opposed to it but later accepted after elaborate explanation.) - EKG 1 Time of EKG reading by physician:: 17:13 EKG Read and Signed by:: Nacho Olea EKG Interpretation (*Must complete 3 of following elements*): Abnormal Rate: 55 Rhythm: Sinus Bradycardia [place]: normal ST Wave: non-specific ST changes - XRAY 1 XRAY: Bilateral XRAY Study: Chest Impression: See EMR Report (IMPRESSION: Negative exam. Electronically signed by Dion Hope 08/27/2019 4:34 PM 08/27/19 [id number]) - CT/MRI 1 CT Study: Head Impression: See EMR Report (IMPRESSION: No acute disease or change from prior. This exam was performed using automated exposure control, adjustment of mA or kV according to patient size, and/or use of iterative reconstruction technique Electronically signed by Dion Hope 08/27/2019 4:36 PM) - CONSULTS/PCP/HOSPITALIST Notification #1 *Consult/PCP/Hospitalist*: NURSE RN BSN [place] Time Discussed: 18:35 Consult Disposition: Admit (accepts admission for hospitalist) Departure - Departure Date of Disposition Decision: 08/27/19 Time of Disposition Decision: 18:33 DIAGNOSIS: PANCHITO (acute kidney injury) AMS (altered mental status) Qualifiers: Altered mental status type: transient alteration of awareness Qualified Code(s): R40.4 - Transient alteration of awareness Disposition: ADMITTED INPATIENT 09 Certified Medical Emergency: Emergent Condition: Stable - Critical Care Note This patient required my direct & personal management of CC.: No Attestation - Physician/ YOSELYN Attestation Patient care was provided by Advanced Practice Provider:: No The physician spent face to face time with patient:: Yes Advanced Practice Provider documentation review:: Supervising physician onsite and consulted in the evaluation and care of this patient. The physician did have a face to face encounter with the patient. This chart was documented by the indicated scribe, (Deneen Wilkes Scribe) and accurately reflects the services I performed and decisions made by me, Heide Alvarez MD, as attested by the provider's signature.
[2019-08-27] MEDS ORDERED: TAMIFLU PO ONE (19:24)
[2019-08-27] MEDS ORDERED: TUSSIONEX LIQUID PO PRN (21:06)
[2019-08-27] MEDS ORDERED: TYLENOL PO PRN (21:06)
[2019-08-27] MEDS ORDERED: ZOFRAN IV PRN (21:06)
[2019-08-28 07:22] LABS: BASO# 0.02 X1000 (0.0-0.2); BASO% 0.4 % (0.0-0.8); EOS# 0.11 X1000 (0.0-0.7); HEMATOCRIT 40.4 % (37.0-47.0); HEMOGLOBIN 12.9 g/dL (12.0-16.0); LYMPH# 2.23 X1000 (1.2-3.4); LYMPH% 40.9 % (20.5-51.1); MCH 31.4 PG (27-31); MCHC 31.9 g/dL (33-37); MCV 98.3 FL (81-99); MONO# 0.78 X1000 (0.11-0.59); MONO% 14.3 % (1.7-9.3); NEUT# 2.31 X1000 (1.4-6.5); NEUT% 42.4 % (42.2-75.2); PLT 133 X1000 (130-400); RBC 4.11 XMIL (4.2-5.4); RDW 13.7 % (11.5-14.5); WBC 5.45 X1000 (4.8-10.8)
[2019-08-28 08:20] LABS: AGAP 10; BUN 18 mg/dL (8-22); CALCIUM 8.2 mg/dL (8.8-10.2); CHLORIDE 105 mmol/L (98-107); COSMO 276; CREATININE 0.8 mg/dL (0.5-0.9); ESTIMATED GFR > 60; GLUCOSE 103 mg/dL (70-104); POTASSIUM 3.6 mmol/L (3.5-5.1); SODIUM 137 mmol/L (136-145); TCO2 22 mmol/L (25-35)
[2019-08-28] MEDS: TAMIFLU PO SCH ×2 (08:21→22:58)
--- NOTE | 2019-08-28 16:47 | PROGRESS NOTE ---
DATE: 08/28/2019 SUBJECTIVE: This patient is feeling much better. She is not complaining of chest pain, or shortness of breath. She seems to be more oriented. The is at the bedside and, as per the , she is really close to her baseline. When I was asking questions she was answering most of them, but she did not find some of the words to express herself. I have placed this patient back on her home medications. When she came in she was confused and we did not have the medications here. I reviewed her medications and I had an old list from 2018. I will keep this patient one more night. She seems to be getting better. Her kidney function recovered. Her creatinine decreased from 2.3 to 0.8. Let us see how she does. Continue with Tamiflu. OBJECTIVE: Vital Signs: Temperature 98 degrees, pulse 65, respiratory rate 23, blood pressure 155/65, oxygen saturation 96 on room air. HEENT: Head normocephalic, no trauma. PERRLA. Neck: Supple. No JVD. No masses. Central trachea. Chest: Clear to auscultation. Prolonged expiratory phase with some crepitus bilaterally. Abdomen: Soft, nontender, nondistended. No hepatosplenomegaly. Extremities: No edema, no clubbing, no cyanosis. Neurological: The patient is awake, alert. She is oriented x3, but her answers are slow and sometimes she does not find the words to express herself. LABORATORY: WBC 5.4, hemoglobin 12.9, hematocrit 40.4, platelets 133,000. Sodium 137, potassium 3.6, chloride 105, bicarbonate 22, BUN 18, creatinine 0.8, glucose 103, calcium 8.2. ASSESSMENT AND PLAN: 1. Metabolic encephalopathy, this patient seems to be getting better. I will continue with same management. I will put this patient back on her home medications, likely secondary to medications and dehydration. Also, she has positive lab work that showed influenza A. 2. Influenza A infection, continue with Tamiflu. 3. Acute kidney injury, resolved after getting IV fluids. 4. History of hypertension, blood pressure seems to be a little bit elevated. I will place this patient back on her home medications. 5. Dyslipidemia, aware. Continue same management. 6. History of coronary artery disease with multiple stents placed, aware. Continue with Brilinta and metoprolol. I will keep this patient one more night and tomorrow hopefully I will discharge this patient home. She seems to be doing much better. I have placed this patient back on her home medications. Let us see how she does. cc: Harjit Beavers MD
[2019-08-28] MEDS: PRILOSEC PO SCH (17:35)
[2019-08-28] MEDS: ASPIRIN EC PO SCH (17:36)
[2019-08-28] MEDS: NEURONTIN PO SCH ×2 (17:36→23:05)
[2019-08-28] MEDS: LOPRESSOR PO SCH (17:36)
[2019-08-28] MEDS ORDERED: LIPITOR PO SCH (21:00)
[2019-08-28] MEDS: BRILINTA PO SCH (22:57)
[2019-08-29 07:57] LABS: AGAP 11; BUN 12 mg/dL (8-22); CALCIUM 8.7 mg/dL (8.8-10.2); CHLORIDE 108 mmol/L (98-107); COSMO 283; CREATININE 0.7 mg/dL (0.5-0.9); ESTIMATED GFR > 60; GLUCOSE 98 mg/dL (70-104); SODIUM 142 mmol/L (136-145); TCO2 23 mmol/L (25-35)
--- NOTE | 2019-08-29 08:50 | HISTORY AND PHYSICAL ---
CHIEF COMPLAINT: Cough, nausea, vomiting, diarrhea. HISTORY OF PRESENT ILLNESS: Ms. Belle is a 68-year-old female who comes in with a complaint of cough for 5 days. Last night and today she has had cold sweats. She had nausea, vomiting and diarrhea at around 11 a.m. Stated that she had a brief spell of unresponsiveness and later had a staggering gait and blurry vision as well as fatigue. She felt foggy-headed and forgetful. She did admit to taking a relative's Marty today for her chronic back pain. She has a history of hypertension, hyperlipidemia and coronary artery disease status post cardiac stenting. On examination, she is alert and oriented x3, in no acute distress. Flu swab showed the patient to be positive for influenza A. Will give Tamiflu and place on saline for acute kidney injury. She will be admitted for further evaluation and treatment. PAST MEDICAL HISTORY: See HPI. PREVIOUS SURGICAL HISTORY: Appendectomy, hysterectomy, cardiac catheterization with stenting, elbow surgery. SOCIAL HISTORY: Smokes a pack a day. Rare alcohol use. No illicit drugs. FAMILY HISTORY: Positive for coronary artery disease in her first-degree relatives. I believe one of her siblings had a myxoma. ALLERGIES: No known drug allergies. HOME MEDICATIONS: The list of home medications has not been reconciled. An order was placed for nursing to reconcile home medications in the computer. REVIEW OF SYSTEMS: A 14-point review of systems was conducted with the patient. With the loss of consciousness she denied falling or hitting her head, though she could not say how long the episode lasted. All other systems were reviewed and found to be negative. Other pertinent positives were listed above in the HPI. PHYSICAL EXAMINATION: VITAL SIGNS: Temperature 97.5, pulse 55, respirations 16, blood pressure 105/64, oxygen saturation 98% on room air. GENERAL: A 68-year-old female lying in the ER stretcher, alert and oriented x3, in no acute distress. HEENT: Head is atraumatic, normocephalic. Pupils equal, round, and reactive to light. Extraocular eye movements intact. Sclerae are anicteric. Conjunctivae are pink. Oral mucosa is dry. NECK: Supple. No JVD, no thyromegaly. Trachea is midline. No cervical lymphadenopathy. CARDIAC: S1 and S2 appreciated. There is a 1/6 systolic ejection murmur noted. No gallops, no rubs. LUNGS: Clear to auscultation bilaterally. No rhonchi, wheezes or rales. Symmetric rise and fall with respirations. ABDOMEN: Soft, nondistended, nontender. Bowel sounds present in all 4 quadrants, normoactive. No pulsatile mass. No organomegaly. EXTREMITIES: No clubbing, cyanosis or edema, 1+ pedal pulses bilaterally. GENITOURINARY: No bladder distention. Patient voids. Otherwise deferred. NEUROLOGIC: Alert and oriented x3. Cranial nerves II-XII grossly intact. DIAGNOSTIC DATA: Chest x-ray: No effusions, infiltrates. EKG: Sinus bradycardia, rate 55. Head CT: No acute change, stable from prior examination . LABORATORY DATA: CBC within normal limits. Coags within normal limits. Sodium 136, potassium 5, chloride 97, carbon dioxide 21, BUN 30, creatinine 2.3, glucose 127. Urine unremarkable. Toxicology screen presumptively positive for opiates. ASSESSMENT/PLAN: 1. Influenza type A. 2. Acute kidney injury. 3. Nausea, vomiting and diarrhea. 4. Fluid volume depletion. 5. History of hypertension, at this time hypotensive. 6. Hyperlipidemia. PLAN: Admit patient to the medical floor. She received a fluid bolus of normal saline. Continue fluids at 125 ml/hr. Start Tamiflu. Zofran as needed for nausea. Tussionex every 12 hours as needed for cough, Tylenol as needed for fever. Place the patient on a healthy-heart diet. Recheck laboratory data tomorrow morning. She was not checked for orthostatic hypotension. Will check orthostatics. Further recommendations per patient's clinical course. Dictated by GRETA Arredondo for Harjit Beavers MD cc: GRETA Arredondo MD
[2019-08-29] MEDS ORDERED: CELEXA PO SCH (09:00)
[2019-08-29] MEDS ORDERED: AVAPRO PO SCH (09:00)
[2019-08-29 09:03] LABS: BASO# 0.04 X1000 (0.0-0.2); BASO% 0.8 % (0.0-0.8); EOS# 0.15 X1000 (0.0-0.7); HEMATOCRIT 41.4 % (37.0-47.0); HEMOGLOBIN 13.3 g/dL (12.0-16.0); LYMPH# 2.38 X1000 (1.2-3.4); LYMPH% 47.5 % (20.5-51.1); MCH 31.4 PG (27-31); MCHC 32.1 g/dL (33-37); MCV 97.9 FL (81-99); MONO# 0.72 X1000 (0.11-0.59); MONO% 14.4 % (1.7-9.3); MPV 12.6 FL (7.4-10.4); NEUT# 1.72 X1000 (1.4-6.5); NEUT% 34.3 % (42.2-75.2); PLT 146 X1000 (130-400); RBC 4.23 XMIL (4.2-5.4); RDW 13.8 % (11.5-14.5); WBC 5.01 X1000 (4.8-10.8)
[2019-08-29] MEDS: LOPRESSOR PO SCH (09:24)
[2019-08-29] MEDS: PRILOSEC PO SCH (09:24)
[2019-08-29] MEDS: NEURONTIN PO SCH (09:24)
[2019-08-29] MEDS: BRILINTA PO SCH (09:25)
[2019-08-29] MEDS: ASPIRIN EC PO SCH (09:25)
[2019-08-29] MEDS: TAMIFLU PO SCH (09:25)
[2019-08-29 11:07] VITALS: BP 183/72
--- NOTE | 2019-08-29 20:48 | DISCHARGE SUMMARY ---
ADMISSION DATE: 08/27/2019 DISCHARGE DATE: 08/29/2019 DIAGNOSES: 1. Influenza type A. 2. Acute kidney injury, resolved. 3. Metabolic encephalopathy, resolved. 4. Dyslipidemia. Aware. 5. History of coronary artery disease with multiple stents placed. Aware. DIAGNOSTICS: 1. Chest x-ray revealed negative exam. Lungs are normally expanded and clear. Heart size and mediastinal contours are normal. No pneumothorax or effusion. 2. CT of the head without contrast revealed no acute disease. 3. Microbiology influenza nasal screen revealed influenza A positive, influenza B negative. HOSPITAL COURSE: Ms. Belle presented to the emergency room complaining of cough, nausea, vomiting, and diarrhea. She was found to be influenza A positive for which she was started on Tamiflu along with IV hydration and Zofran for nausea. Initial blood pressure was 89/59 after hydration, blood pressures have remained in the 130s to 170s over 70s to 80s. She was confused on admission. The states that she is back to her baseline. Her initial creatinine was 2.3, after hydration creatinine stayed 0.7 to 0.8. She has remained afebrile and thankfully she is ready for discharge. DISCHARGE VITAL SIGNS: Blood pressure is 174/70 with a heart rate of 81, respirations 19, temperature 98.2 degrees oral with O2 saturations 95 to 97 percent on room air. DISCHARGE PHYSICAL EXAMINATION: Cardiovascular: Regular rate and rhythm. S1 and S2 appreciated. She has no lower extremity edema. Calves are nontender. Bilateral peripheral pulses palpable x4 extremities. Pulmonary: Breath sounds are clear. No increased work of breathing noted. Chest rises and falls symmetric with respiration. Gastrointestinal: Abdomen is soft, nontender, nondistended. Bowel sounds in all 4 quadrants. Neurologic: She is alert and oriented. DISCHARGE MEDICATIONS: 1. Enteric-coated aspirin 81 mg p.o. daily. 2. Avapro 150 mg p.o. daily. 3. Brilinta 90 mg p.o. b.i.d. 4. Celexa 30 mg p.o. daily. 5. Gabapentin 300 mg p.o. t.i.d. 6. Lipitor 80 mg p.o. at bedtime. 7. Lopressor 50 mg p.o. daily. 8. Omeprazole 40 mg p.o. daily. 9. Tamiflu 75 mg p.o. b.i.d. x7 capsules. 10. Tylenol 650 q. 6 hours p.r.n. FOLLOWUP: Dr. Jaquan Marin in one week. They need to call Monday to schedule an appointment to be seen. She has been instructed to call to be seen sooner or return to the ER for any syncope, dizziness, chest pain, palpitations, a temperature greater than 101, any nausea, vomiting, diarrhea, constipation, black or bloody vomitus or stools, any increasing shortness of breath, or for any questions or concerns that she may have. She is being discharged home in stable condition with family members. This is a greater than 30 minute discharge. The patient was evaluated for home O2. She did not qualify having room air saturations that ranged from 93 to 96 percent. It was discussed with the patient per myself, per the emergency room physician as well as Dr. Lamb, the importance of smoking cessation to which she and the did voice understanding. Dictated by GRETA Hayes for Harjit Beavers MD cc: GRETA Hayes MD Michael C. Donham, MD
== END 2019-08-29 12:15 | disposition home or self-care (01) | DRG 682 ==
LOC: SUPCPDRO → ED 14:27 → 3N 20:47 → SUATTDRO 20:47
PROVIDERS: ATTEND Internal Medicine